=== PATIENT | female | born 1960 | race Caucasian/White ===

== ENCOUNTER → 2019-04-28 | Outpatient (CLI) | payer BC ==
--- NOTE | 2019-04-28 10:03 | CT ---
EXAMINATION TYPE: CT heart w calcium score DATE OF EXAM: 04/28/2019 COMPARISON: None HISTORY: Screening for cardiovascular disorder. 213.9 CT DLP: 60.6 mGycm Automated exposure control for dose reduction was used. CT CALCIUM SCORING Coronary calcium is a marker for plaque (fatty deposits) in a blood vessel or atherosclerosis (harden ing of the arteries). The presence and amount of calcium detected in a coronary artery by the CT sca n, indicates the presence and amount of atherosclerotic plaque. These calcium deposits appear years before the development of heart disease symptoms such as chest pain and shortness of breath. A calcium score is computed for each of the coronary arteries based upon the volume and density of th e calcium deposits. This can be referred to as your calcified plaque burden. It does not correspond directly to the percentage of narrowing in the artery but does correlate with the severity of the un derlying coronary atherosclerosis. PROCEDURE TECHNIQUE - Prospective Gating was used. Slice thickness: 3mm. Density threshold (HU): 130, Pixel threshold: 3, Algorithm: discrete. RESULTS Region: LM Calcium Score ([place]): .61 Volume (mm3): 1.84 Mass (g): 0 Region: RCA Calcium Score ([place]): .49 Volume (mm3): 1.47 Mass (g): 0 Region: LAD Calcium Score ([place]): .12 Volume (mm3): .37 Mass (g): 0 Region: CX Calcium Score ([place]): .12 Volume (mm3): .37 Mass (g): 0 Region: PDA Calcium Score ([place]): 0 Volume (mm3): 0 Mass (g): 0 Total: Calcium Score ([place]): 1.34 Volume (mm3): 4.05 Mass (g): 0 There is a subpleural 1 and 2 mm nodule left upper lobe which is indeterminate and too small to ysabel cterize. Hypertrophic change of the spine. TOTAL CALCIUM SCORE: 1.34 IMPRESSION: Calcium Score: 1.34 Implication: Minimal identifiable plaque Risk of Coronary Artery Disease: Very unlikely, less than 10% There is a subpleural 1 and 2 mm nodule left upper lobe which is too small to characterize. Six-monalisa h follow-up CT of the chest is recommended to confirm stability. CALCIUM SCORE IMPLICATION RISK OF C ORONARY ARTERY DISEASE 0 No identifiable plaque Very low, generally less than 5% 1-10 Minimal identifiable plaque Very unlikely, less than 10% 11-100 Definite, at least mild atherosclerotic plaque Mild or m inimal coronary narrowings likely 101-400 Definite, at least moderate atherosclerotic plaque Mild coronary ar ariella disease highly likely, significant narrowing possible 401 or Higher Extensive atherosclerotic plaque High lik elihood of at least one significant coronary narrowing
== END | disposition home or self-care (01) ==
LOC: RADCTMAIN 08:52
PROVIDERS: ATTEND Nurse Practitioner Family
DX: I25.10 Atherosclerotic heart disease of native coronary artery without angina pectoris (principal); Z82.49 Family history of ischemic heart disease and other diseases of the circulatory system
CPT/HCPCS: 75571

== ENCOUNTER → 2019-12-15 | Outpatient (CLI) | payer BC ==
--- NOTE | 2019-12-15 09:59 | CT ---
EXAMINATION TYPE: CT chest wo con DATE OF EXAM: 12/15/2019 COMPARISON: 04/28/2019 CT HISTORY: Abnormal findings of lung field CT DLP: 513 mGycm, Automated exposure control for dose reduction was used. CONTRAST: Performed injected with 0 mL of Isovue 300. TECHNIQUE: Axial images were obtained at 5 mm thick sections. Reconstructed images are reviewed on [facility] computer in the coronal plane. FINDINGS: Portion of the thyroid visualized is normal. Couple small areas of pneumonitis measuring 0.4 and 0.2 cm are in the right midlung. Series 4 image 2 5. Previous left subpleural nodule is not identified on the current exam. No enlarged mediastinal or hilar adenopathy is evident. The ascending aorta diameter at the level o f the main pulmonary artery is 4.2 cm. The main pulmonary artery diameter at the bifurcation is 2.[address] sections are obtained through the upper abdomen. Abdomen is essentially unremarkable. IMPRESSIONS: 1. Couple small areas of pneumonitis within the right upper lung field. Recommend follow-up CT chest in 6 months for high-risk patients.
== END | disposition home or self-care (01) ==
LOC: RADCTMAIN 08:07
PROVIDERS: ATTEND Family Medicine
DX: J18.9 Pneumonia, unspecified organism (principal)
CPT/HCPCS: 71250